=== PATIENT | female | born 1985 | race Caucasian/White ===

== ENCOUNTER 2019-02-24 16:16 | Inpatient (IN) | payer BC ==
[~2019-02-24] VITALS: Ht 160 cm; Wt 56.7 kg
[2019-02-24 16:38] VITALS: BP 110/66
--- NOTE | 2019-02-24 17:14 | NUR ---
8 WKS 33YR F SENT FROM URGENT CARE W/ C/O NVD X 5 DAYS W/ NON RADIATING EPIGASTRIC PAIN 6/10 X 2 DAYS. STATES FEVER A FEW DAYS AGO, ALSO STATES COUGH. LMP APPROX 12/17/18,
[2019-02-24] MEDS ORDERED: ONDANSETRON 4 MG/2 ML VIAL IVP ONE ×2 (17:40→20:40)
[2019-02-24] MEDS ORDERED: NACL 0.9% 1,000 ML IV ONE ×3 (17:40→20:40)
[2019-02-24 18:15] LABS: BASOPHILS % (AUTO) 0.1 % (0.0-2.0); EOSINOPHILS % (AUTO) 0.3 % (0.0-4.0); HEMOGLOBIN 12.9 g/dL (12.0-16.0); LYMPHOCYTES # (AUTO) 1.4 K/uL (2.5-16.5); LYMPHOCYTES % (AUTO) 31.5 % (20.5-51.1); MEAN CORPUSCULAR HEMOGLOBIN 30 pg (27-31); MEAN CORPUSCULAR HGB CONC 34 g/dL (33-37); MEAN CORPUSCULAR VOLUME 88.3 fL (80-94); MONOCYTES # (AUTO) 0.4 K/uL (0.8-1.0); MONOCYTES % (AUTO) 8.7 % (1.7-9.3); NEUTROPHILS # (AUTO) 2.7 K/uL (1.8-7.7); NEUTROPHILS % (AUTO) 59.4 % (42.2-75.2); PLATELET COUNT (AUTO) 207 K/uL (140-450); WHITE BLOOD COUNT (AUTO) 4.5 K/uL (4.8-10.8)
[2019-02-24 18:16] LABS: APPEARANCE,URINE CLEAR (CLEAR); BILIRUBIN,URINE 1+ (NEGATIVE); BLOOD, URINE 1+ (NEGATIVE); COLOR,URINE YELLOW (YELLOW); LEUKOCYTE ESTERASE ,URINE NEGATIVE (NEGATIVE); NITRITE, URINE NEGATIVE (NEGATIVE); UGLUCOSE NEGATIVE (NEGATIVE)
[2019-02-24 18:33] LABS: ANION GAP 16.5 (8-16); CARBON DIOXIDE 21.9 mmol/L (21-32); CREATININE 0.6 mg/dL (0.6-1.3); POTASSIUM 3.4 mmol/L (3.5-5.1)
[2019-02-24 18:33] LABS: URINE AMORPHOUS URATE 1+ /HPF (None Seen); WBC,URINE 0-5 /HPF (0-5)
[2019-02-24 18:39] LABS: ALBUMIN 3.7 g/dL (3.4-5.0); TOTAL BILIRUBIN 0.4 mg/dL (0.0-1.0)
--- NOTE | 2019-02-24 19:04 | NUR ---
REPORT TO CHRISSIE ROWLAND. TRANSFER OF CARE AT THIS TIME.
[2019-02-24] MEDS ORDERED: ACETAMINOPHEN 325 MG TAB PO ONE (19:20)
--- NOTE | 2019-02-24 19:26 | NUR ---
PT C/O 10 HEADACHE PAIN. ERMD MADE AWARE.
--- NOTE | 2019-02-24 20:35 | NUR ---
Dr. Da Silva examining patient.
--- NOTE | 2019-02-24 20:36 | NUR ---
PT VOMITED X 1. ERMD MADE AWARE.
[2019-02-24] MEDS ORDERED: PYRIDOXINE 100 MG/ML VIAL IV ONE (20:40)
[2019-02-24] MEDS ORDERED: DEXT 5% / NACL 0.9% 1,000 ML IV ONE (20:45)
--- NOTE | 2019-02-24 21:20 | NUR ---
PT RESTING IN BED WITH EYES CLOSED. VSS. WILL CONTINUE TO MONITOR.
--- NOTE | 2019-02-24 21:40 | NUR ---
VITMAN B6 UNAVAILABLE IN HOSPITAL. RODRICKD MADE AWARE.
--- NOTE | 2019-02-24 22:57 | NUR ---
DR. JEONG SPEAKING WITH PT AT BEDSIDE
[2019-02-24] MEDS ORDERED: METOCLOPRAMIDE 10 MG/2 ML INJ VIAL IVP ONE (23:00)
--- NOTE | 2019-02-24 23:20 | NUR ---
PT AMBULATED TO RESTROOM
[2019-02-24] MEDS ORDERED: DEXT 5% /NACL 0.9% 1,000 ML IV SCH (23:32)
[2019-02-24] MEDS ORDERED: ACETAMINOPHEN 325 MG TAB PO PRN (23:35)
[2019-02-24] MEDS ORDERED: DOCUSATE SODIUM 100 MG GELCAP PO PRN (23:35)
[2019-02-24] MEDS ORDERED: PYRIDOXINE 50 MG TAB PO PRN (23:35)
--- NOTE | 2019-02-25 00:10 | NUR ---
Patient will be admitted to care of [facility]. Admited to TELE. Will go to room 106A. Belongings list completed. Report to KASHIF BROWN.
--- NOTE | 2019-02-25 00:10 | NUR ---
TRANSFER OF CARE AND REPORT GIVEN TO KASHIF BROWN
[2019-02-25 00:11] LABS: BARBITURATE, URINE NEG. ng/ml (NEG <=200); BENZODIAZEPINE, URINE NEG. ng/mL (NEG <=200); CANNABINOID, URINE NEG. ng/mL (NEG <=50); COCAINE, URINE NEG. ng/mL (NEG <=300); OPIATE, URINE NEG. ng/mL (NEG <=2000); PHENCYCLIDINE SCREEN,URINE NEG. ng/mL (NEG <=25)
[2019-02-25 00:15] VITALS: BP 92/54
--- NOTE | 2019-02-25 00:15 | NUR ---
REPORT RECEIVED FROM ED NURSE AT BEDSIDE. PT IN STABLE CONDITION. AAOX4. INTRODUCED SELF. BOARD UPDATED. NO COMPLAINTS OF PAIN. NO SOB. AFEBRILE. PT IS AMBULATORY. PT 8 WEEKS . IV SITE R AC 20G RUNNING D5NS@100ML/HR PATENT AND INTACT. SKIN WARM, DRY, AND INTACT WITH NO OPEN WOUNDS. BED LOCKED IN LOW POSITION. CALL BRYSON WITHIN REACH. SAFETY PRECAUTION IN PLACE. ALL NEEDS MET AT THIS TIME.
[2019-02-25] MEDS ORDERED: KCL 20 MEQ/WATER INJ PREMIX 200 ML IV SCH (00:30)
[2019-02-25] MEDS ORDERED: TRAM50TA3 PO (00:32)
[2019-02-25] MEDS ORDERED: ACET-5636 PO (00:32)
[2019-02-25 00:38] LABS: PROTHROMBIN TIME 9.7 secs (10.8-13.4)
[2019-02-25 00:50] LABS: MAGNESIUM 1.9 mg/dL (1.8-2.4); PHOSPHORUS 2.7 mg/dL (2.5-4.9)
[2019-02-25] MEDS ORDERED: NALBUPHINE 10 MG/ML AMP IVP PRN (00:50)
[2019-02-25 00:51] LABS: THYROID STIMULATING HORMONE 0.29 uIU/mL (0.34-3.74)
--- NOTE | 2019-02-25 00:53 | NUR ---
POTASSIUM GIVEN IV FOR LEVEL OF 3.4. PT TOLERATING WELL. Addendum: 02/25/19 at 0123 by Rui Cardona RN BAG 1 OF 2 HUNG.
[2019-02-25] MEDS ORDERED: IMI50 PO (01:07)
[2019-02-25] MEDS ORDERED: MORPHINE SULFATE 2 MG/ML SYR IVP PRN (01:15)
[2019-02-25] MEDS ORDERED: INFLUENZA VACCINE QUAD 0.5 ML SYR IMVAC PRN (01:30)
--- NOTE | 2019-02-25 02:30 | NUR ---
PT SLEEPING COMFORTABLY BUT AROUSABLE. NO S/S OF DISTRESS NOTED. RESPIRATIONS EVEN, UNLABORED, AND WNL. WILL CONTINUE TO MONITOR.
[2019-02-25] MEDS ORDERED: traMADol 50 MG TAB PO SCH (03:30)
--- NOTE | 2019-02-25 03:45 | NUR ---
TRAMADOL GIVEN FOR HEADACHE. PT CAME IN FOR NAUSEA AND VOMITING. SHE SAID SHE COULD NOT KEEP THE MEDICATION DOWN. WILL ATTEMPT TO GIVE ANOTHER MEDICATION.
[2019-02-25] MEDS: ONDANSETRON 4 MG/2 ML VIAL IM/IVP PRN (03:54)
--- NOTE | 2019-02-25 03:54 | NUR ---
ZOFRAN GIVEN FOR NAUSEA AND VOMITING. PT TOLERATED WELL.
[2019-02-25 04:00] VITALS: BP 89/53
--- NOTE | 2019-02-25 04:34 | NUR ---
MD ORDERED 1MG MORPHINE THROUGH IV BUT PATIENT STATES THAT SHE CANNOT TAKE THE MEDICATION. MEDICATION WAS DRAWN INTO SYRINGE. MEDICATED WASTED INTO THE PHARMACEUTICAL WASTE BIN.
[2019-02-25] MEDS ORDERED: HYDROmorphone 1 MG/ML AMP ONE ×5 (09:00→21:25)
[2019-02-25] MEDS ORDERED: MAG SULF 2000 MG/WATER PREMIX 50 ML IV ONE (16:50)
[2019-02-25] MEDS ORDERED: MELATONIN 3 MG TAB ONE (21:45)
[2019-02-26] MEDS ORDERED: HYDROmorphone 1 MG/ML AMP ONE ×7 (00:25→22:08)
--- NOTE | 2019-02-26 07:40 | NUR ---
RECEIVED REPORT FROM UNDERGROUND ELECTRICIAN NURSE FOR CONTINUITY OF CARE. PATIENT LYING DOWN IN BED, NO DISTRESS NOTED. PAIN WITHIN TOLERABLE AT THIS TIME. AAOX4, CALM, COOPERATIVE, SKIN COLOR APPROPRIATE TO ETHNICITY, WARM TO TOUCH. SKIN INTACT. IV SITE INTACT, PATENT, AND INFUSING IVF PER MD ORDERS. REVIEWED PLAN OF CARE WITH PATIENT. PATIENT VERBALIZED UNDERSTANDING. SAFETY MEASURES IN PLACE, CALL LIGHT WITHIN REACH. WILL CONTINUE TO MONITOR.
--- NOTE | 2019-02-26 08:16 | NUR ---
0816 DILAUDID GIVEN AT THIS TIME DUE TO COMPLAINS OF ABD PAIN. 0832 ZOFRAN GIVEN AT THIS TIME DUE TO NAUSEA. WILL CONTINUE TO MONITOR.
[2019-02-26] MEDS: ONDANSETRON 4 MG/2 ML VIAL IM/IVP PRN (08:32)
[2019-02-26] MEDS ORDERED: METOCLOPRAMIDE 10 MG/2 ML INJ VIAL ONE (13:40)
[2019-02-26 15:13] LABS: T4 (THYROXINE) 8.3 ug/dL (4.5-12.0)
[2019-02-26] MEDS ORDERED: ONDANSETRON 4 MG/2 ML VIAL ONE (18:50)
[2019-02-26 20:00] VITALS: BP 98/61
[2019-02-26 20:11] LABS: ANION GAP 16.3 (8-16); CARBON DIOXIDE 18.8 mmol/L (21-32); CHOL/HDL RATIO 4.5 (1-4.5); CREATININE 0.5 mg/dL (0.6-1.3); MAGNESIUM 1.7 mg/dL (1.8-2.4); PHOSPHORUS 1.9 mg/dL (2.5-4.9); POTASSIUM 3.1 mmol/L (3.5-5.1)
[2019-02-26] MEDS ORDERED: hydrOXYzine PAMOATE 25 MG CAP ONE (22:32)
[2019-02-27] VITALS: BP 90/45
[2019-02-27] MEDS ORDERED: HYDROmorphone 1 MG/ML AMP ONE ×2 (02:03→06:26)
[2019-02-27] MEDS ORDERED: METOCLOPRAMIDE 10 MG/2 ML INJ VIAL ONE (02:33)
[2019-02-27 04:00] VITALS: BP 92/50
[2019-02-27] MEDS: NACL 0.9% 1,000 ML IV SCH ×3 (07:35→23:39)
[2019-02-27 08:00] VITALS: BP 93/57
[2019-02-27 08:04] LABS: BASOPHILS % (AUTO) 0.1 % (0.0-2.0); EOSINOPHILS % (AUTO) 0.4 % (0.0-4.0); HEMATOCRIT 30.7 % (36-48); HEMOGLOBIN 10.8 g/dL (12.0-16.0); LYMPHOCYTES # (AUTO) 1.9 K/uL (2.5-16.5); LYMPHOCYTES % (AUTO) 27.8 % (20.5-51.1); MEAN CORPUSCULAR HEMOGLOBIN 31 pg (27-31); MEAN CORPUSCULAR HGB CONC 35 g/dL (33-37); MEAN CORPUSCULAR VOLUME 88.1 fL (80-94); MONOCYTES # (AUTO) 0.5 K/uL (0.8-1.0); NEUTROPHILS # (AUTO) 4.4 K/uL (1.8-7.7); NEUTROPHILS % (AUTO) 64.7 % (42.2-75.2); PLATELET COUNT (AUTO) 248 K/uL (140-450); RED BLOOD CELL COUNT(AUTO) 3.49 MIL/uL (4.20-5.40); RED CELL DISTRIBUTION WIDTH 12.9 % (11.6-13.7); WHITE BLOOD COUNT (AUTO) 6.8 K/uL (4.8-10.8)
[2019-02-27] MEDS: NICOTINE TRANSD SYS 14 MG/24 HR PATCH TD SCH (09:00)
--- NOTE | 2019-02-27 09:00 | NUR ---
PATIENT SLEEPING AT THE BEDSIDE. STABLE. WILL CONTINUE TO MONITOR.
[2019-02-27 09:06] LABS: ANION GAP 13.1 (8-16); CARBON DIOXIDE 21.7 mmol/L (21-32); CREATININE 0.5 mg/dL (0.6-1.3); POTASSIUM 2.8 mmol/L (3.5-5.1); TOTAL BILIRUBIN 0.4 mg/dL (0.0-1.0)
[2019-02-27 09:07] LABS: ALBUMIN 2.7 g/dL (3.4-5.0); MAGNESIUM 1.6 mg/dL (1.8-2.4); PHOSPHORUS 2.4 mg/dL (2.5-4.9)
[2019-02-27] MEDS ORDERED: hydrOXYzine PAMOATE 25 MG CAP PO PRN (09:25)
[2019-02-27] MEDS ORDERED: HYDROmorphone 1 MG/ML AMP IVP PRN (09:30)
[2019-02-27] MEDS ORDERED: PROMETHAZINE 25 MG/ML VIAL IM PRN (09:30)
[2019-02-27] MEDS ORDERED: ONDANSETRON 4 MG/2 ML VIAL IVP PRN (09:30)
[2019-02-27] MEDS ORDERED: METOCLOPRAMIDE 10 MG/2 ML INJ VIAL IVP PRN (09:30)
[2019-02-27] MEDS ORDERED: POTASSIUM CHLORIDE 10 MEQ TABER PO SCH (10:00)
[2019-02-27] MEDS ORDERED: POTASSIUM CHLORIDE 40 MEQ, LIDOCAINE MPF 1% 25 MG in NACL 0.9% 250 ML IV SCH (10:00)
[2019-02-27] MEDS ORDERED: MAGNESIUM OXIDE 400 MG TAB PO SCH (10:00)
[2019-02-27] MEDS ORDERED: SODIUM PHOS / POTASSIUM PHOS 1 PKT PDR PO SCH (10:00)
[2019-02-27 10:37] LABS: BASOPHILS % (AUTO) 0.1 % (0.0-2.0); EOSINOPHILS % (AUTO) 0.1 % (0.0-4.0); HEMATOCRIT 33.8 % (36-48); HEMOGLOBIN 11.6 g/dL (12.0-16.0); LYMPHOCYTES # (AUTO) 1.1 K/uL (2.5-16.5); LYMPHOCYTES % (AUTO) 27.9 % (20.5-51.1); MEAN CORPUSCULAR HEMOGLOBIN 31 pg (27-31); MEAN CORPUSCULAR HGB CONC 34 g/dL (33-37); MEAN CORPUSCULAR VOLUME 88.7 fL (80-94); MONOCYTES # (AUTO) 0.3 K/uL (0.8-1.0); MONOCYTES % (AUTO) 8.3 % (1.7-9.3); NEUTROPHILS # (AUTO) 2.4 K/uL (1.8-7.7); NEUTROPHILS % (AUTO) 63.6 % (42.2-75.2); PLATELET COUNT (AUTO) 206 K/uL (140-450); RED BLOOD CELL COUNT(AUTO) 3.81 MIL/uL (4.20-5.40); WHITE BLOOD COUNT (AUTO) 3.8 K/uL (4.8-10.8)
--- NOTE | 2019-02-27 13:24 | NUR ---
PAIN MEDICATION GIVEN TO PATIENT R/T TO ADB PAIN. WILL CONTINUE TO MONITOR.
[2019-02-27] MEDS ORDERED: FAMOTIDINE 20 MG/2 ML VIAL IV SCH (14:17)
[2019-02-27] MEDS ORDERED: CALCIUM CARBONATE 500 MG TAB.CHEW PO SCH (14:18)
[2019-02-27] MEDS ORDERED: SHARK OIL/PHENYLEPHRINE 60 GM TUBE TP PRN (14:35)
[2019-02-27 16:00] VITALS: BP 101/62
[2019-02-27] MEDS: PROMETHAZINE 25 MG/ML VIAL IM PRN (17:17)
--- NOTE | 2019-02-27 17:17 | NUR ---
PATIENT C/O ABD PAIN, WILL GIVE PAIN MEDS, PER DR ISAIAH VELASQUEZ TO INCREASE TO 0.5 MG DILAUDID. PATIENT ALSO REQUESTING PHENERGAN, REQUESTING TO HAVE THAT INSTEAD OF ZOFRAN. MEDICATIONS WERE GIVEN AT THIS TIME. VITAL SIGNS ARE STABLE. WILL CONTINUE TO MONITOR.
[2019-02-27] MEDS: HYDROmorphone 1 MG/ML AMP IVP PRN ×2 (17:18→22:25)
--- NOTE | 2019-02-27 18:30 | NUR ---
PATIENT LAYING PEACEFULLY IN BED. ON PHONE. PATIENT IS TOLERATING BRIT DIET BETTER. WILL CONTINUE TO MONITOR.
[2019-02-27 18:48] LABS: ALBUMIN 3.4 g/dL (3.4-5.0); ANION GAP 13.4 (8-16); CARBON DIOXIDE 22.2 mmol/L (21-32); CREATININE 0.5 mg/dL (0.6-1.3); POTASSIUM 3.6 mmol/L (3.5-5.1); TOTAL BILIRUBIN 0.5 mg/dL (0.0-1.0)
--- NOTE | 2019-02-27 19:10 | NUR ---
GAVE REPORT TO CARROTING MACHINE OFFBEARER NURSE FOR CONTINUITY OF CARE. PATIENT IN STABLE CONDITION.
--- NOTE | 2019-02-27 19:15 | NUR ---
RECEIVED FROM AM RN IN BED AWAKE AND ALERT. ORIENTED X 4. ROM X 4. ABLE TO VERBALIZE WELL IN SWEDISH WITH US. NO SOB. NO COMPLAINTS OF ANY PAIN AT THIS TIME. CARE PLANS FOR THE NIGHT DISCUSSED WITH HER. CALL LIGHT WITH IN REACH AT BEDSIDE.
[2019-02-27 20:00] VITALS: BP 80/47
[2019-02-27] MEDS ORDERED: hydrOXYzine 50 MG/ML VIAL IM SCH (21:00)
[2019-02-27] MEDS: CALCIUM CARBONATE 500 MG TAB.CHEW PO SCH (21:24)
[2019-02-27] MEDS: FAMOTIDINE 20 MG/2 ML VIAL IV SCH (21:24)
--- NOTE | 2019-02-27 22:08 | NUR ---
ENDORSED TO ANOTHER RN FOR CONTINUITY OF CARE INSTRUCTED BY CHARGE NURSE. AWAKE AND ALERT. ABLE TO VERBALIZE NEEDS WELL.
--- NOTE | 2019-02-27 22:09 | NUR ---
RECEIVED PT IN STABLE CONDITION FROM KASHIF LEON FOR CONTINUITY OF CARE. HAS IVF INFUSING ON LT AC. AMBULATORY. NO N/V NOTED. BUT SAID SHE IS HAVING PAIN. EXPLAINED TO PT ABOUT LOW BP. WILL RECHECK LATER.
[2019-02-27] MEDS: hydrOXYzine PAMOATE 25 MG CAP PO SCH (22:10)
[2019-02-27 22:18] VITALS: BP 97/54
--- NOTE | 2019-02-27 22:55 | NUR ---
DR. FISHMAN CAME AND SEEN PT. MADE AWARE [facility] HE SAID HE WILL CHANGE TO [facility].
--- NOTE | 2019-02-28 00:30 | NUR ---
ENDORSED PT IN STABLE CONDITION TO KASHIF MIDDLETONFUR PLUCKER FOR CONTINUITY OF CARE.
[2019-02-28 00:38] VITALS: BP 92/52
--- NOTE | 2019-02-28 00:40 | NUR ---
RECEIVED REPORT OF PT IN STABLE CONDITION.IVF IS INFUSING WELL.CALL LIGHT IN REACH.NO C/O PAIN NOW.
[2019-02-28] MEDS: PROMETHAZINE 25 MG/ML VIAL IM PRN (02:00)
[2019-02-28] MEDS: HYDROmorphone 1 MG/ML AMP IVP PRN ×2 (02:03→08:16)
[2019-02-28] MEDS: NACL 0.9% 1,000 ML IV SCH ×5 (03:40→23:19)
--- NOTE | 2019-02-28 04:00 | NUR ---
pt is sleeping.no s/s of any distress noted.
--- NOTE | 2019-02-28 07:25 | NUR ---
REPORT GIVEN TO AM RN .PT'S CONDITION IS STABLE.IV SITE HAD LEAKAGE STOPPED THAT AND ENDORSE TO AM SHIFT TO RESTART NEW IV.
--- NOTE | 2019-02-28 07:28 | NUR ---
[facility] report [facility]. Pt is in bed in stable condition. Call light in reach.
[2019-02-28 07:58] LABS: BASOPHILS % (AUTO) 0.1 % (0.0-2.0); EOSINOPHILS # (AUTO) 0.1 K/uL (0-0.4); EOSINOPHILS % (AUTO) 0.8 % (0.0-4.0); HEMATOCRIT 29.9 % (36-48); HEMOGLOBIN 10.3 g/dL (12.0-16.0); LYMPHOCYTES % (AUTO) 29.7 % (20.5-51.1); MEAN CORPUSCULAR HEMOGLOBIN 30 pg (27-31); MEAN CORPUSCULAR HGB CONC 34 g/dL (33-37); MEAN CORPUSCULAR VOLUME 88.8 fL (80-94); MONOCYTES # (AUTO) 0.5 K/uL (0.8-1.0); MONOCYTES % (AUTO) 7.9 % (1.7-9.3); NEUTROPHILS # (AUTO) 4.1 K/uL (1.8-7.7); NEUTROPHILS % (AUTO) 61.5 % (42.2-75.2); PLATELET COUNT (AUTO) 246 K/uL (140-450); RED BLOOD CELL COUNT(AUTO) 3.37 MIL/uL (4.20-5.40); RED CELL DISTRIBUTION WIDTH 13.1 % (11.6-13.7); WHITE BLOOD COUNT (AUTO) 6.6 K/uL (4.8-10.8)
[2019-02-28 08:00] VITALS: BP 99/69
[2019-02-28] MEDS: FAMOTIDINE 20 MG/2 ML VIAL IV SCH ×2 (08:14→20:58)
[2019-02-28] MEDS: CALCIUM CARBONATE 500 MG TAB.CHEW PO SCH ×2 (08:15→21:00)
[2019-02-28 08:34] LABS: ANION GAP 14.8 (8-16); CARBON DIOXIDE 20.4 mmol/L (21-32); CREATININE 0.5 mg/dL (0.6-1.3); POTASSIUM 3.2 mmol/L (3.5-5.1)
[2019-02-28 08:38] LABS: MAGNESIUM 1.5 mg/dL (1.8-2.4); PHOSPHORUS 2.5 mg/dL (2.5-4.9)
[2019-02-28] MEDS: NICOTINE TRANSD SYS 14 MG/24 HR PATCH TD SCH (09:00)
--- NOTE | 2019-02-28 09:00 | NUR ---
Pt refused nicotine patch. Pt says that she is not feeling any symptoms.
[2019-02-28] MEDS ORDERED: POTASSIUM CHLORIDE 10 MEQ TABER PO SCH (10:00)
[2019-02-28] MEDS ORDERED: MAG SULF 2000 MG/WATER PREMIX 50 ML IV SCH (10:00)
--- NOTE | 2019-02-28 10:00 | NUR ---
Pt is in stable condition. Family be bedside. Call light in reach.
[2019-02-28] MEDS: HYDROmorphone 1 MG/ML AMP IVP SCH ×5 (11:04→22:30)
[2019-02-28] MEDS: ONDANSETRON 4 MG/2 ML VIAL IVP SCH ×2 (12:44→18:00)
[2019-02-28] MEDS: METOCLOPRAMIDE 10 MG/2 ML INJ VIAL IVP SCH ×2 (12:44→20:58)
--- NOTE | 2019-02-28 13:00 | NUR ---
Pt is in stable condition. Family be bedside. Call light in reach.
--- NOTE | 2019-02-28 15:00 | NUR ---
Pt is in stable condition. Family be bedside. Call light in reach.
[2019-02-28 16:00] VITALS: BP 99/59
--- NOTE | 2019-02-28 17:00 | NUR ---
Pt is in stable condition. Family be bedside. Call light in reach.
[2019-02-28] MEDS: PROMETHAZINE 25 MG/ML VIAL IM SCH ×2 (17:02→21:08)
[2019-02-28 17:19] LABS: ANION GAP 17.7 (8-16); CARBON DIOXIDE 21.4 mmol/L (21-32); CREATININE 0.6 mg/dL (0.6-1.3); POTASSIUM 3.1 mmol/L (3.5-5.1); TOTAL BILIRUBIN 0.5 mg/dL (0.0-1.0)
[2019-02-28 17:20] LABS: ALBUMIN 2.9 g/dL (3.4-5.0); MAGNESIUM 1.9 mg/dL (1.8-2.4); PHOSPHORUS 2.4 mg/dL (2.5-4.9)
--- NOTE | 2019-02-28 19:30 | NUR ---
Shift report given to night nurse nurse. Pt is in stable condition. Call light in reach.
--- NOTE | 2019-02-28 19:31 | NUR ---
RECD. RESTING IN BED, AWAKE, A/OX4. RESPIRATION EVEN AND UNLABORED. IV OF NS AT 150 ML/HR INFUSING, LEFT AC G20. NO NAUSEA.VOMITING NOTED. CLAIMED THAT SHE IS ALWAYS IN CONSTANT PAIN, WILL GIVE PAIN MEDICATION WHEN IT IS DUE. PLAN OF CARE FOR THE SHIFT DISCUSSED. VERBALIZED UNDERSTANDING. DENIES PAIN 0/10.
--- NOTE | 2019-02-28 20:00 | NUR ---
Patient's Plan of Care was discussed and reviewed with WAREHOUSE PICKER: LISA SERNA LVN.
--- NOTE | 2019-02-28 20:58 | NUR ---
MEDICATED WITH REGLAN IVP BY KASHIF BROWN PER MD ORDER.
[2019-02-28] MEDS: hydrOXYzine PAMOATE 25 MG CAP PO SCH (21:00)
[2019-02-28] MEDS ORDERED: ZOLPIDEM 5 MG TAB PO SCH (21:00)
--- NOTE | 2019-02-28 21:08 | NUR ---
STATED ALWAYS FEELING TO BE NAUSEATED, MEDICATED WITH PHENERGAN ORDERED.
[2019-03-01] VITALS: BP 93/60
--- NOTE | 2019-03-01 | NUR ---
SLEEPING COMFORTABLY IN BED.
[2019-03-01] MEDS: HYDROmorphone 1 MG/ML AMP IVP SCH ×4 (00:02→08:30)
[2019-03-01] MEDS: ONDANSETRON 4 MG/2 ML VIAL IVP SCH ×2 (00:04→05:10)
[2019-03-01 02:30] VITALS: BP 94/55
[2019-03-01] MEDS: PROMETHAZINE 25 MG/ML VIAL IM SCH ×3 (02:39→08:33)
[2019-03-01] MEDS: NACL 0.9% 1,000 ML IV SCH ×2 (03:46→11:05)
--- NOTE | 2019-03-01 04:00 | NUR ---
NO COMPLAINT OF PAIN, TOLERATED ALL MEDICATIONS GIVEN.
[2019-03-01] MEDS: METOCLOPRAMIDE 10 MG/2 ML INJ VIAL IVP SCH (05:09)
[2019-03-01 07:17] LABS: BASOPHILS % (AUTO) 0.1 % (0.0-2.0); EOSINOPHILS # (AUTO) 0.1 K/uL (0-0.4); EOSINOPHILS % (AUTO) 1.4 % (0.0-4.0); HEMATOCRIT 29.6 % (36-48); HEMOGLOBIN 10.1 g/dL (12.0-16.0); LYMPHOCYTES # (AUTO) 2.1 K/uL (2.5-16.5); MEAN CORPUSCULAR HEMOGLOBIN 30 pg (27-31); MEAN CORPUSCULAR HGB CONC 34 g/dL (33-37); MEAN CORPUSCULAR VOLUME 89.2 fL (80-94); MONOCYTES # (AUTO) 0.6 K/uL (0.8-1.0); MONOCYTES % (AUTO) 7.9 % (1.7-9.3); NEUTROPHILS # (AUTO) 4.7 K/uL (1.8-7.7); NEUTROPHILS % (AUTO) 62.6 % (42.2-75.2); PLATELET COUNT (AUTO) 271 K/uL (140-450); RED BLOOD CELL COUNT(AUTO) 3.32 MIL/uL (4.20-5.40); RED CELL DISTRIBUTION WIDTH 13.1 % (11.6-13.7); WHITE BLOOD COUNT (AUTO) 7.5 K/uL (4.8-10.8)
[2019-03-01 07:19] LABS: ANION GAP 14.6 (8-16); CARBON DIOXIDE 20.9 mmol/L (21-32); CREATININE 0.5 mg/dL (0.6-1.3); POTASSIUM 3.5 mmol/L (3.5-5.1)
--- NOTE | 2019-03-01 07:20 | NUR ---
CONDIITON REMAIN STABLE. ENDORSED TO AM SHIFT NURSE FOR CONTINUITY OF CARE.
--- NOTE | 2019-03-01 07:22 | NUR ---
RECEIVED BEDSIDE REPORT FROM JEWELRY ENAMELER NURSE FOR CONTINUITY OF CARE. PATIENT IS ASLEEP ON BED. AROUSABLE TO VOICE. FLACC 0. RESPIRATION EVEN AND UNLABORED ON RA. NO SIGNS OF DISTRESS NOTED. IV CLEAN AND INTACT, INFUSING PER MD ORDER. SKIN CLEAN AND DRY. SAFETY MEASURES IN PLACE. BED IN LOW POSITION AND CALL LIGHT WITHIN REACH.
[2019-03-01 07:28] LABS: MAGNESIUM 1.6 mg/dL (1.8-2.4); PHOSPHORUS 2.9 mg/dL (2.5-4.9)
[2019-03-01 07:32] LABS: ALBUMIN 2.7 g/dL (3.4-5.0); BILIRUBIN,DIRECT 0.1 mg/dL (0.0-0.3); TOTAL BILIRUBIN 0.4 mg/dL (0.0-1.0)
[2019-03-01 08:00] VITALS: BP 90/53
[2019-03-01] MEDS: CALCIUM CARBONATE 500 MG TAB.CHEW PO SCH (08:30)
[2019-03-01] MEDS: FAMOTIDINE 20 MG/2 ML VIAL IV SCH (08:31)
[2019-03-01] MEDS: NICOTINE TRANSD SYS 14 MG/24 HR PATCH TD SCH (08:34)
--- NOTE | 2019-03-01 08:34 | NUR ---
ADMINISTERED SCHEDULED MEDS MD ORDER, MEDS ED PROVIDED TO PATIENT AND PATIENT VERBALIZED UNDERSTANDING. PATIENT TOLERATED MEDS WELL. PATIENT IS AAOX4. INFORMED PATIENT THAT SHE WILL BE RELEASE FROM THE HOSPITAL TODAY, PATIENT WAS AWARE AND STATED "MY FAMILY WILL PICK ME UP AROUND NOON TIME, BUT I DON'T WANT THEM TO KNOW ANYTHING ABOUT MY AND REQUEST FAMILY NOT TO KNOW ABOUT HER MEDICAL INFOR." EXPLAINED TO PATIENT THAT DURING DISCHARGE I WILL ASK FAMILY/VISITOR TO STEP OUT AND NOT DISCLOSE ANY OF HER INFOR, PATIENT SAID OK. PATIENT IS RESTING ON BED AT THIS TIME. NO SIGNS OF DISTRESS NOTED. SAFETY MEASURES IN PLACE. BED IN LOW POSITION AND CALL LIGHT WITHIN REACH. INSTRUCTED PATIENT TO USE THE CALL LIGHT FOR ANY ASSISTANCE AND PATIENT SAID OK.
[2019-03-01] MEDS ORDERED: BISACODYL 5 MG TABEC PO SCH (09:30)
[2019-03-01] MEDS ORDERED: DOCUSATE SODIUM 100 MG GELCAP PO SCH (09:30)
[2019-03-01] MEDS ORDERED: traMADol 50 MG TAB PO PRN (09:35)
--- NOTE | 2019-03-01 09:40 | NUR ---
PT AWAKE AND TALKING ON HER PHONE AT THIS TIME. NO SIGNS OF DISTRESS NOTED. SAFETY MEASURES IN PLACE.
[2019-03-01] MEDS ORDERED: HYDR-4255 PO (09:44)
[2019-03-01] MEDS ORDERED: PROM25TA27 PO (09:44)
[2019-03-01] MEDS ORDERED: FAMO-90 PO (09:44)
[2019-03-01] MEDS ORDERED: DOCU-299 PO (09:44)
[2019-03-01] MEDS ORDERED: PYRI50TA PO (09:44)
[2019-03-01] MEDS ORDERED: DOXY25TA30 PO (09:44)
[2019-03-01] MEDS ORDERED: METO10TA98 PO (09:44)
[2019-03-01] MEDS ORDERED: ONDA8TAB PO (09:44)
[2019-03-01] MEDS ORDERED: MAGNESIUM OXIDE 400 MG TAB PO SCH (10:00)
[2019-03-01] MEDS ORDERED: FAMOTIDINE 20 MG TAB PO SCH ×2 (10:00→21:00)
--- NOTE | 2019-03-01 11:05 | NUR ---
ADMINISTERED SCHEDULED MEDS PER MD ORDER, MEDS ED PROVIDED TO PATIENT AND PT VERBALIZED OK. ADMINISTERED FLU VACCINE, VACCINATION ED PROVIDED TO PATIENT AND PATIENT VERBALIZED UNDERSTANDING. PATIENT IS AWAKE AND RESTING ON BED AT THIS TIME. AWAITING FOR FAMILY TO ARRIVE FOR DC. NO SIGNS OF DISTRESS NOTED. SAFETY MEASURES IN PLACE.
[2019-03-01] MEDS ORDERED: METOCLOPRAMIDE 10 MG TAB PO PRN (12:00)
[2019-03-01] MEDS ORDERED: ONDANSETRON 4 MG ODT SL SCH (12:00)
[2019-03-01] MEDS ORDERED: PROMETHAZINE 25 MG TAB PO PRN (12:00)
--- NOTE | 2019-03-01 12:15 | NUR ---
PATIENT IS AWAKE AND TALKING ON HER PHONE. NO SIGNS OF DISTRESS NOTED. SAFETY MEASURES IN PLACE. BED IN LOW POSITION AND CALL LIGHT WITHIN REACH. AWAITING FOR FAMILY TO ARRIVE FOR DC.
--- NOTE | 2019-03-01 12:44 | NUR ---
DISCHARGE EDUCATION PROVIDED TO PATIENT AT BEDSIDE. EDUCATED PT ON MD FOLLOW UP, MEDICATIONS REGIMEN, SIDE EFFECTS, DIET REGIMEN AND SEEK MEDICAL HELP IN CASE OF MEDICAL EMERGENCY. ANSWERED ALL PATIENT'S QUESTIONS AND PATIENT VERBALIZED UNDERSTANDING. DC IV AND CANNULA INTACT, NO BLEEDING AT IV SITE. REMOVED ALL ARM BANDS. PATIENT TOOK ALL HER BELONGING AND CHECK ALL THE CABINETS. PATIENT WAS AWARE THAT HER PRESCRIPTION WAS SENT TO PREFERRED PHARMACY. FLU VACCINE ADMINISTERED AND ED PROVIDED. ESCORTED PT TO FRONT LOBBY WITH WHEELCHAIR. PATIENT IS GOING TO [place] WITH MOTHER ELISABET. PATIENT IS IN STABLE CONDITION.
[2019-03-01] MEDS ORDERED: NON-FORMULARY ITEM (Oxycodone HCl/Acetaminophen (Percocet 10-325 mg Tablet) 1 TAB) PO SCH (13:00)
--- NOTE | 2019-03-01 14:30 | NUR ---
Called [employer] [facility] at [phone]. CM assigned is Linda Jaquez The rep. did not give me her Ph .Linda did not burr picker. I left a message. Requested remote team to fax over the clinicals at [phone].
[2019-03-02] MEDS ORDERED: DOCUSATE SODIUM 100 MG GELCAP PO SCH (09:00)
[2019-03-02 20:17] LABS: RED BLOOD CELL COUNT(AUTO) 3.66 MIL/uL (4.20-5.40); WHITE BLOOD COUNT (AUTO) 6.1 K/uL (4.8-10.8)
[2019-03-02 20:18] LABS: HEMATOCRIT 32.7 % (36-48); MEAN CORPUSCULAR HEMOGLOBIN 30 pg (27-31); MEAN CORPUSCULAR HGB CONC 34 g/dL (33-37); MEAN CORPUSCULAR VOLUME 89.3 fL (80-94); PLATELET COUNT (AUTO) 234 K/uL (140-450); RED CELL DISTRIBUTION WIDTH 12.9 % (11.6-13.7)
[2019-03-02 20:19] LABS: BASOPHILS % (AUTO) 0.1 % (0.0-2.0); EOSINOPHILS % (AUTO) 0.4 % (0.0-4.0); LYMPHOCYTES # (AUTO) 1.5 K/uL (2.5-16.5); LYMPHOCYTES % (AUTO) 24.6 % (20.5-51.1); MONOCYTES # (AUTO) 0.5 K/uL (0.8-1.0); MONOCYTES % (AUTO) 7.7 % (1.7-9.3); NEUTROPHILS # (AUTO) 4.1 K/uL (1.8-7.7); NEUTROPHILS % (AUTO) 67.2 % (42.2-75.2)
== END 2019-03-01 12:45 | disposition home or self-care (01) | DRG 832 ==
LOC: MED 16:16 → MTU 23:45
PROVIDERS: ADMIT Family Medicine; ATTEND Family Medicine
DX: O21.1 Hyperemesis gravidarum with metabolic disturbance (principal); O98.511 Other viral diseases complicating pregnancy, first trimester; O99.354 Diseases of the nervous system complicating childbirth; G43.909 Migraine, unspecified, not intractable, without status migrainosus; E86.0 Dehydration; B34.9 Viral infection, unspecified; O99.281 Endocrine, nutritional and metabolic diseases complicating pregnancy, first trimester; F17.200 Nicotine dependence, unspecified, uncomplicated; R10.2 Pelvic and perineal pain; G47.00 Insomnia, unspecified; G89.29 Other chronic pain; O99.331 Smoking (tobacco) complicating pregnancy, first trimester; O34.219 Maternal care for unspecified type scar from previous cesarean delivery; Z3A.01 Less than 8 weeks gestation of pregnancy; Z79.891 Long term (current) use of opiate analgesic
CPT/HCPCS: 36415; 76700; 76705; 76801; 80048; 80053; 80076; 80305; 81001; 82150; 82607; 82728; 82746; 83036; 83540; 83690; 83735; 83880; 84100; 84436; 84443; 84484; 84702; 85025; 85045; 85610; 85730; 86900; 86901; 87081; 87804; 96361; 96374; 96375; 96376; 99285; J1170; J2001; J2270; J2405; J2550; J2765; J3415; J3475; J3480; J3490; J7030; J7042; Q0092; Q0177

== ENCOUNTER 2019-04-01 17:28 | Emergency (ER) | payer BC ==
[~2019-04-01] VITALS: Ht 160 cm; Wt 57.6 kg
[~2019-04-01 17:28] MED LIST: ACET-5636 PO; DOCU-299 PO; DOXY25TA30 PO; FAMO-90 PO; HYDR-4255 PO; IMI50 PO; METO10TA98 PO; ONDA8TAB PO; PROM25TA27 PO; PYRI50TA PO; TRAM50TA3 PO
[2019-04-01 17:40] VITALS: BP 100/71
--- NOTE | 2019-04-01 19:23 | NUR ---
PT AMBULATED TO BED 4
[2019-04-01] MEDS ORDERED: NACL 0.9% 1,000 ML IV ONE ×2 (19:45→21:15)
[2019-04-01] MEDS ORDERED: KETOROLAC 30 MG/ML VIAL IVP ONE (19:45)
[2019-04-01] MEDS ORDERED: ONDANSETRON 4 MG/2 ML VIAL IVP ONE (19:45)
--- NOTE | 2019-04-01 19:52 | NUR ---
PT ASSESSMENT COMPLETE. PT ATTACHED TO MONITORING SYSTEM. PT SEATED UPRIGHT IN BED WITH BEDRAIL X1UP. WILL CONTINUE TO MONITOR.
[2019-04-01 20:52] LABS: APPEARANCE,URINE CLEAR (CLEAR); BILIRUBIN,URINE NEGATIVE (NEGATIVE); BLOOD, URINE NEGATIVE (NEGATIVE); COLOR,URINE YELLOW (YELLOW); LEUKOCYTE ESTERASE ,URINE NEGATIVE (NEGATIVE); NITRITE, URINE NEGATIVE (NEGATIVE); UGLUCOSE NEGATIVE (NEGATIVE)
--- NOTE | 2019-04-01 20:57 | NUR ---
PT AMBULATED TO RESTROOM WITH NO ASSISTANCE.
--- NOTE | 2019-04-01 21:00 | NUR ---
PT REPORTS NO CHANE IN PAIN LEVEL AND FEELINGS OF NAUSEA. ERMD NOTIFIED.
--- NOTE | 2019-04-01 21:30 | NUR ---
NEW ORDER FOR 1L NS BOLUS, CARRIED OUT.
--- NOTE | 2019-04-01 23:15 | NUR ---
PT SEEN IN BED LAYING FLAT. BEDRAIL X1 UP. PT CONIDTION STABLE. WILL CONTINUE TO MONITOR.
--- NOTE | 2019-04-02 00:20 | NUR ---
Patient discharged with v/s stable. Written and verbal after care instructions given and explained. Patient alert, oriented and verbalized understanding of instructions. Ambulatory with steady gait. All questions addressed prior to discharge. ID band removed. Patient advised to follow up with PMD. Rx of DICLEGIS given. Patient educated on indication of medication including possible reaction and side effects. Opportunity to ask questions provided and answered.
[2019-04-02 00:23] VITALS: BP 108/79
== END 2019-04-02 00:20 | disposition home or self-care (01) ==
LOC: MED 17:28
DX: O21.0 Mild hyperemesis gravidarum (principal); G89.29 Other chronic pain; Z3A.11 11 weeks gestation of pregnancy; Z79.899 Other long term (current) drug therapy
CPT/HCPCS: 81003; 81025; 96361; 96374; 96375; 99283; J1885; J2405; J7030; 99284

== ENCOUNTER 2019-06-04 20:33 | Inpatient (IN) | payer BC ==
[~2019-06-04] VITALS: Ht 160 cm; Wt 59.0 kg
[~2019-06-04 20:33] MED LIST changes: -DOCU-299 PO; -FAMO-90 PO; -HYDR-4255 PO
[2019-06-04 21:22] VITALS: BP 102/62
[2019-06-04] MEDS ORDERED: ONDANSETRON 4 MG/2 ML VIAL IVP PRN (21:35)
[2019-06-04] MEDS ORDERED: cefTRIAXone 1,000 MG VIAL ONE (22:06)
[2019-06-04 22:15] LABS: BASOPHILS % (AUTO) 0.3 % (0.0-2.0); EOSINOPHILS # (AUTO) 0.4 K/uL (0-0.4); EOSINOPHILS % (AUTO) 3.4 % (0.0-4.0); HEMATOCRIT 33.6 % (36-48); HEMOGLOBIN 11.4 g/dL (12.0-16.0); LYMPHOCYTES # (AUTO) 2.4 K/uL (2.5-16.5); LYMPHOCYTES % (AUTO) 21.3 % (20.5-51.1); MEAN CORPUSCULAR HEMOGLOBIN 31 pg (27-31); MEAN CORPUSCULAR HGB CONC 34 g/dL (33-37); MONOCYTES # (AUTO) 0.7 K/uL (0.8-1.0); MONOCYTES % (AUTO) 6.2 % (1.7-9.3); NEUTROPHILS # (AUTO) 7.7 K/uL (1.8-7.7); NEUTROPHILS % (AUTO) 68.8 % (42.2-75.2); PLATELET COUNT (AUTO) 256 K/uL (140-450); RED BLOOD CELL COUNT(AUTO) 3.69 MIL/uL (4.20-5.40); RED CELL DISTRIBUTION WIDTH 12.4 % (11.6-13.7); WHITE BLOOD COUNT (AUTO) 11.2 K/uL (4.8-10.8)
[2019-06-04 22:18] LABS: BILIRUBIN,URINE NEGATIVE (NEGATIVE); BLOOD, URINE TRACE-I (NEGATIVE); COLOR,URINE YELLOW (YELLOW); LEUKOCYTE ESTERASE ,URINE 1+ (NEGATIVE); NITRITE, URINE POSITIVE (NEGATIVE); UGLUCOSE NEGATIVE (NEGATIVE)
[2019-06-04 22:28] LABS: ANION GAP 9.4 (8-16); CARBON DIOXIDE 30.2 mmol/L (21-32); CREATININE 0.6 mg/dL (0.6-1.3); POTASSIUM 3.6 mmol/L (3.5-5.1); TOTAL BILIRUBIN 0.1 mg/dL (0.0-1.0)
[2019-06-04 22:44] LABS: APPEARANCE,URINE CLOUDY (CLEAR)
[2019-06-04 22:45] LABS: RBC,URINE 0-5 /HPF (0-5)
[2019-06-04] MEDS: NACL 0.9% 1,000 ML IV SCH (23:38)
[2019-06-05] MEDS ORDERED: fentaNYL 0.05 MG/ML VIAL ONE (00:43)
[2019-06-05] MEDS: fentaNYL 0.05 MG/ML VIAL IVP PRN ×6 (02:38→17:53)
[2019-06-05] MEDS ORDERED: traMADol 50 MG TAB PO PRN (06:05)
[2019-06-05] MEDS: NITROFURANTOIN 100 MG CAP PO SCH ×2 (08:25→17:13)
[2019-06-05] MEDS ORDERED: traMADol 50 MG TAB PO SCH (09:00)
[2019-06-05] MEDS ORDERED: traMADol 50 MG TAB ONE (12:40)
[2019-06-05] MEDS: oxyCODONE/APAP 5/325 MG 1 TAB TAB PO SCH ×2 (12:49→19:02)
[2019-06-05] MEDS: traMADol 50 MG TAB PO SCH ×2 (17:12→21:12)
[2019-06-05] MEDS ORDERED: GENTAMICIN PER PHARMACY MC PRN (18:10)
[2019-06-05] MEDS ORDERED: cefTRIAXone 2,000 MG in DEXTROSE 5% 100 ML IV SCH (18:10)
[2019-06-05] MEDS ORDERED: cefTRIAXone 2,000 MG in NACL 0.9% 100 ML IV SCH (18:50)
[2019-06-05] MEDS ORDERED: cefTRIAXone 1,000 MG VIAL ONE (18:51)
[2019-06-05] MEDS: cefTRIAXone 2,000 MG in NACL 0.9% 100 ML IV SCH (19:01)
[2019-06-05] MEDS ORDERED: GENTAMICIN 120 MG in NACL 0.9% 100 ML IV SCH ×2 (19:05→20:50)
[2019-06-05] MEDS ORDERED: GENTAMICIN 80 MG/2 ML VIAL ONE (21:12)
[2019-06-05] MEDS: HYDROmorphone PFS 2 MG/ML SYR IVP SCH (21:13)
[2019-06-05] MEDS: metroNIDAZOLE 500 MG TAB PO SCH (21:26)
[2019-06-06] MEDS ORDERED: HYDROmorphone PFS 2 MG/ML SYR IVP SCH
[2019-06-06] MEDS: NACL 0.9% 1,000 ML IV SCH ×3 (00:22→17:20)
[2019-06-06] MEDS: oxyCODONE/APAP 5/325 MG 1 TAB TAB PO SCH ×3 (01:03→13:00)
[2019-06-06] MEDS: HYDROmorphone PFS 2 MG/ML SYR IVP SCH ×4 (03:04→20:05)
--- NOTE | 2019-06-06 07:38 | NUR ---
PATIENT HAS BEEN SCREENED AND CATEGORIZED LOW NUTRITION RISK. PATIENT WILL BE SEEN WITHIN 7 DAYS OF ADMISSION. 06/12/[address]
[2019-06-06] MEDS: metroNIDAZOLE 500 MG TAB PO SCH ×2 (09:03→21:04)
[2019-06-06] MEDS: traMADol 50 MG TAB PO SCH ×2 (09:03→15:05)
[2019-06-06] MEDS: GENTAMICIN 80 MG in DEXTROSE 5% 100 ML IV SCH ×2 (09:05→21:06)
[2019-06-06] MEDS ORDERED: traMADol 50 MG TAB PO SCH (13:00)
[2019-06-06] MEDS ORDERED: HYDROmorphone PFS 2 MG/ML SYR ONE (15:58)
[2019-06-06] MEDS ORDERED: cefTRIAXone 1,000 MG VIAL ONE (18:46)
[2019-06-06] MEDS: cefTRIAXone 2,000 MG in NACL 0.9% 100 ML IV SCH (18:56)
[2019-06-07] MEDS: HYDROmorphone PFS 2 MG/ML SYR IVP SCH ×3 (00:06→12:55)
[2019-06-07] MEDS: NACL 0.9% 1,000 ML IV SCH (08:47)
[2019-06-07] MEDS: GENTAMICIN 80 MG in DEXTROSE 5% 100 ML IV SCH (08:49)
[2019-06-07] MEDS ORDERED: cefTRIAXone 2,000 MG in DEXTROSE 5% 100 ML IV SCH (13:00)
[2019-06-07] MEDS ORDERED: AMPICILLIN 1,000 MG VIAL ONE (13:47)
== END 2019-06-07 14:25 | disposition home or self-care (01) | DRG 833 ==
LOC: MLD 20:33 → OBSVTOIN 06-06 20:31
PROVIDERS: ADMIT Obstetrics & Gynecology; ATTEND Obstetrics & Gynecology
DX: O23.42 Unspecified infection of urinary tract in pregnancy, second trimester (principal); O34.211 Maternal care for low transverse scar from previous cesarean delivery; Z3A.21 21 weeks gestation of pregnancy; G89.29 Other chronic pain; R10.2 Pelvic and perineal pain
CPT/HCPCS: 36415; 76805; 76817; 80053; 81001; 85025; 87086; G0378; J0290; J0696; J1170; J1580; J2405; J3010; J7030; J7060; Q0092

== ENCOUNTER 2019-09-09 14:33 | Inpatient (IN) | payer BC ==
[~2019-09-09] VITALS: Ht 160 cm; Wt 65.3 kg
[~2019-09-09 14:33] MED LIST changes: -DOXY25TA30 PO; -METO10TA98 PO; -PROM25TA27 PO; -PYRI50TA PO
[2019-09-09] MEDS ORDERED: LACTATED RINGERS 500 ML IV ONE (14:35)
[2019-09-09] MEDS ORDERED: LACTATED RINGERS 1,000 ML IV SCH (14:35)
[2019-09-09] MEDS ORDERED: DOL10 PO (14:49)
[2019-09-09 15:33] VITALS: BP 117/73
[2019-09-09 15:39] LABS: APPEARANCE,URINE CLEAR (CLEAR); BILIRUBIN,URINE NEGATIVE (NEGATIVE); BLOOD, URINE NEGATIVE (NEGATIVE); COLOR,URINE YELLOW (YELLOW); LEUKOCYTE ESTERASE ,URINE NEGATIVE (NEGATIVE); NITRITE, URINE NEGATIVE (NEGATIVE); PH,URINE 6.5 (5.0-9.0); UGLUCOSE NEGATIVE (NEGATIVE)
[2019-09-09 15:51] LABS: BASOPHILS % (AUTO) 0.4 % (0.0-2.0); EOSINOPHILS # (AUTO) 0.4 K/uL (0-0.4); EOSINOPHILS % (AUTO) 3.3 % (0.0-4.0); HEMATOCRIT 31.3 % (36-48); HEMOGLOBIN 10.7 g/dL (12.0-16.0); LYMPHOCYTES % (AUTO) 16.8 % (20.5-51.1); MEAN CORPUSCULAR HEMOGLOBIN 30 pg (27-31); MEAN CORPUSCULAR HGB CONC 34 g/dL (33-37); MEAN CORPUSCULAR VOLUME 87.3 fL (80-94); MONOCYTES # (AUTO) 0.7 K/uL (0.8-1.0); MONOCYTES % (AUTO) 5.8 % (1.7-9.3); NEUTROPHILS # (AUTO) 8.8 K/uL (1.8-7.7); NEUTROPHILS % (AUTO) 73.7 % (42.2-75.2); PLATELET COUNT (AUTO) 314 K/uL (140-450); RED BLOOD CELL COUNT(AUTO) 3.58 MIL/uL (4.20-5.40); RED CELL DISTRIBUTION WIDTH 12.4 % (11.6-13.7); WHITE BLOOD COUNT (AUTO) 11.9 K/uL (4.8-10.8)
[2019-09-09] MEDS ORDERED: BETAMETH ACET/BETAMETH NA PH 30 MG/5 ML VIAL IM SCH (16:00)
[2019-09-09 16:11] LABS: ALBUMIN 2.4 g/dL (3.4-5.0); ANION GAP 11.8 (8-16); CARBON DIOXIDE 25.9 mmol/L (21-32); CREATININE 0.7 mg/dL (0.6-1.3); POTASSIUM 3.7 mmol/L (3.5-5.1); TOTAL BILIRUBIN 0.3 mg/dL (0.0-1.0)
[2019-09-09] MEDS ORDERED: oxyCODONE/APAP 5/325 MG 1 TAB TAB PO PRN (17:20)
[2019-09-09] MEDS ORDERED: METHADONE 10 MG TAB PO SCH (21:00)
[2019-09-10] MEDS ORDERED: traMADol 50 MG TAB PO SCH (09:00)
== END 2019-09-09 20:45 | disposition home or self-care (01) | DRG 833 ==
LOC: MFCC 14:33
PROVIDERS: ADMIT Obstetrics & Gynecology; ATTEND Obstetrics & Gynecology
DX: O36.8330 Maternal care for abnormalities of the fetal heart rate or rhythm, third trimester, not applicable or unspecified (principal); Z88.5 Allergy status to narcotic agent; Z3A.34 34 weeks gestation of pregnancy
CPT/HCPCS: 36415; 76819; 80053; 81003; 85025; 86592; 86886; 86900; 86901; 87653-90; J0690; J0702; J7060; Q0092

== ENCOUNTER 2019-09-16 01:35 | Inpatient (IN) | payer BC ==
[~2019-09-16] VITALS: Ht 160 cm; Wt 68.0 kg
[~2019-09-16 01:35] MED LIST changes: +DOL10 PO; -IMI50 PO; -ONDA8TAB PO
[2019-09-16] MEDS ORDERED: diphenhydrAMINE 50 MG/ML VIAL IVP ONE (02:35)
[2019-09-16] MEDS ORDERED: PROMETHAZINE 25 MG/ML VIAL IVP ONE (02:35)
[2019-09-16] MEDS ORDERED: LACTATED RINGERS 1,000 ML IV SCH (02:40)
[2019-09-16] MEDS ORDERED: diphenhydrAMINE 50 MG/ML VIAL ONE (02:58)
[2019-09-16] MEDS ORDERED: PROMETHAZINE 25 MG/ML VIAL ONE (02:59)
[2019-09-16] MEDS ORDERED: HYDROmorphone PFS 2 MG/ML SYR ONE (02:59)
[2019-09-16] MEDS: HYDROmorphone PFS 2 MG/ML SYR IVP PRN ×4 (03:08→15:04)
[2019-09-16 03:35] LABS: APPEARANCE,URINE CLEAR (CLEAR); BARBITURATE, URINE NEGATIVE ng/ml (NEG <=200); BENZODIAZEPINE, URINE NEGATIVE ng/mL (NEG <=200); BILIRUBIN,URINE NEGATIVE (NEGATIVE); BLOOD, URINE TRACE-I (NEGATIVE); CANNABINOID, URINE NEGATIVE ng/mL (NEG <=50); COCAINE, URINE NEGATIVE ng/mL (NEG <=300); COLOR,URINE YELLOW (YELLOW); LEUKOCYTE ESTERASE ,URINE NEGATIVE (NEGATIVE); NITRITE, URINE NEGATIVE (NEGATIVE); OPIATE, URINE NEGATIVE ng/mL (NEG <=2000); PHENCYCLIDINE SCREEN,URINE NEGATIVE ng/mL (NEG <=25); UGLUCOSE NEGATIVE (NEGATIVE)
[2019-09-16 04:02] LABS: RBC,URINE 0-5 /HPF (0-5); WBC,URINE 0-5 /HPF (0-5)
[2019-09-16] MEDS ORDERED: HYDROmorphone 1 MG/ML AMP IVP PRN ×2 (09:00→10:40)
[2019-09-16] MEDS ORDERED: PROMETHAZINE 25 MG/ML VIAL IVP PRN (09:00)
[2019-09-16] MEDS ORDERED: CARBOPROST 250 MCG/ML AMP IM PRN (09:35)
[2019-09-16] MEDS ORDERED: METHYLERGONOVINE 0.2 MG/ML AMP IM PRN (09:35)
[2019-09-16 10:04] LABS: BASOPHILS % (AUTO) 0.2 % (0.0-2.0); EOSINOPHILS # (AUTO) 0.3 K/uL (0-0.4); EOSINOPHILS % (AUTO) 2.9 % (0.0-4.0); HEMATOCRIT 31.7 % (36-48); HEMOGLOBIN 10.7 g/dL (12.0-16.0); LYMPHOCYTES # (AUTO) 1.9 K/uL (2.5-16.5); LYMPHOCYTES % (AUTO) 16.6 % (20.5-51.1); MEAN CORPUSCULAR HEMOGLOBIN 29 pg (27-31); MEAN CORPUSCULAR HGB CONC 34 g/dL (33-37); MEAN CORPUSCULAR VOLUME 86.9 fL (80-94); MONOCYTES # (AUTO) 0.8 K/uL (0.8-1.0); MONOCYTES % (AUTO) 7.3 % (1.7-9.3); NEUTROPHILS # (AUTO) 8.3 K/uL (1.8-7.7); PLATELET COUNT (AUTO) 327 K/uL (140-450); RED BLOOD CELL COUNT(AUTO) 3.65 MIL/uL (4.20-5.40); RED CELL DISTRIBUTION WIDTH 12.5 % (11.6-13.7); WHITE BLOOD COUNT (AUTO) 11.4 K/uL (4.8-10.8)
[2019-09-16 11:43] VITALS: BP 99/65
[2019-09-16 12:44] LABS: ALBUMIN 2.4 g/dL (3.4-5.0); ANION GAP 10.7 (8-16); CARBON DIOXIDE 27.8 mmol/L (21-32); CREATININE 0.7 mg/dL (0.6-1.3); POTASSIUM 4.5 mmol/L (3.5-5.1); TOTAL BILIRUBIN 0.3 mg/dL (0.0-1.0)
[2019-09-16] MEDS ORDERED: fentaNYL 0.05 MG/ML VIAL ONE (14:50)
[2019-09-16] MEDS ORDERED: KETAMINE 500 MG/5 ML VIAL ONE (14:50)
[2019-09-16] MEDS ORDERED: MIDAZOLAM 2 MG/2 ML VIAL ONE ×2 (14:51→17:45)
[2019-09-16] MEDS ORDERED: ONDANSETRON 4 MG/2 ML VIAL IVP PRN ×2 (16:20)
[2019-09-16] MEDS ORDERED: MEPERIDINE 25 MG/ML SYR IVP PRN (16:20)
[2019-09-16] MEDS ORDERED: NALOXONE 0.4 MG/ML VIAL IVP PRN (16:20)
[2019-09-16] MEDS ORDERED: diphenhydrAMINE 50 MG/ML VIAL IVP PRN (16:20)
[2019-09-16] MEDS ORDERED: KETOROLAC 60 MG/2 ML VIAL IM PRN (16:20)
--- NOTE | 2019-09-16 16:21 | NUR ---
PATIENT HAS BEEN SCREENED AND CATEGORIZED LOW NUTRITION RISK. PATIENT WILL BE SEEN WITHIN 7 DAYS OF ADMISSION. 09/22/[address]
[2019-09-16] MEDS ORDERED: ceFAZolin 1,000 MG VIAL ONE (16:51)
[2019-09-16] MEDS ORDERED: CITRIC ACID/SODIUM CITRATE 30 ML UDC PO SCH (17:00)
[2019-09-16] MEDS ORDERED: AZITHROMYCIN 500 MG INJ VIAL IV ONE ×2 (17:40→18:16)
[2019-09-16] MEDS ORDERED: OXYTOCIN 10 UNITS/ML VIAL ONE (17:45)
[2019-09-16] MEDS ORDERED: ESMOLOL 100 MG/10 ML VIAL IV ONE (17:45)
[2019-09-16] MEDS ORDERED: ONDANSETRON 4 MG/2 ML VIAL ONE (17:45)
[2019-09-16] MEDS ORDERED: ePHEDrine 50 MG/ML VIAL ONE (17:45)
[2019-09-16] MEDS ORDERED: oxyCODONE/APAP 5/325 MG 1 TAB TAB PO PRN (22:30)
[2019-09-16] MEDS ORDERED: traMADol 50 MG TAB PO PRN (22:30)
[2019-09-17] MEDS ORDERED: OXYTOCIN 20 UNITS/LR PREMIX 1,000 ML IV ONE (01:10)
[2019-09-17] MEDS: OXYTOCIN 20 UNITS in LACTATED RINGERS 1,000 ML IV SCH ×2 (01:21→09:45)
[2019-09-17] MEDS: HYDROmorphone 1 MG/ML AMP IVP PRN ×5 (04:10→21:43)
[2019-09-17] MEDS ORDERED: traMADol 50 MG TAB PO PRN (07:00)
[2019-09-17] MEDS ORDERED: HYDROmorphone PFS 2 MG/ML SYR ONE ×4 (08:09→18:24)
[2019-09-17] MEDS: METHADONE 10 MG TAB PO SCH ×2 (11:28→20:59)
[2019-09-17] MEDS ORDERED: HYDROmorphone 1 MG/ML AMP IVP PRN (13:15)
[2019-09-17] MEDS: KETOROLAC 30 MG/ML VIAL IVP SCH (17:30)
[2019-09-17] MEDS: SIMETHICONE 80 MG TAB.CHEW PO PRN (18:29)
[2019-09-17] MEDS: oxyCODONE/APAP 5/325 MG 1 TAB TAB PO PRN (20:38)
[2019-09-18] MEDS: KETOROLAC 30 MG/ML VIAL IVP SCH ×4 (00:01→18:00)
[2019-09-18] MEDS: HYDROmorphone 1 MG/ML AMP IVP PRN ×2 (01:06→04:23)
[2019-09-18] MEDS: oxyCODONE/APAP 5/325 MG 1 TAB TAB PO PRN ×4 (02:48→21:12)
[2019-09-18 09:04] LABS: BASOPHILS % (AUTO) 0.1 % (0.0-2.0); EOSINOPHILS # (AUTO) 0.2 K/uL (0-0.4); EOSINOPHILS % (AUTO) 1.4 % (0.0-4.0); HEMATOCRIT 29.1 % (36-48); HEMOGLOBIN 9.8 g/dL (12.0-16.0); LYMPHOCYTES # (AUTO) 1.2 K/uL (2.5-16.5); LYMPHOCYTES % (AUTO) 10.4 % (20.5-51.1); MEAN CORPUSCULAR HEMOGLOBIN 29 pg (27-31); MEAN CORPUSCULAR HGB CONC 34 g/dL (33-37); MEAN CORPUSCULAR VOLUME 87.1 fL (80-94); MONOCYTES # (AUTO) 0.7 K/uL (0.8-1.0); MONOCYTES % (AUTO) 5.7 % (1.7-9.3); NEUTROPHILS # (AUTO) 9.6 K/uL (1.8-7.7); NEUTROPHILS % (AUTO) 82.4 % (42.2-75.2); PLATELET COUNT (AUTO) 331 K/uL (140-450); RED BLOOD CELL COUNT(AUTO) 3.34 MIL/uL (4.20-5.40); RED CELL DISTRIBUTION WIDTH 12.8 % (11.6-13.7); WHITE BLOOD COUNT (AUTO) 11.6 K/uL (4.8-10.8)
[2019-09-18] MEDS: METHADONE 10 MG TAB PO SCH ×2 (09:31→21:12)
[2019-09-18] MEDS: HYDROmorphone PFS 2 MG/ML SYR IVP PRN ×5 (09:54→21:48)
[2019-09-19] MEDS: KETOROLAC 30 MG/ML VIAL IVP SCH (00:10)
[2019-09-19] MEDS: oxyCODONE/APAP 5/325 MG 1 TAB TAB PO PRN ×2 (02:36→14:16)
[2019-09-19] MEDS: HYDROmorphone PFS 2 MG/ML SYR IVP PRN (02:43)
[2019-09-19] MEDS: HYDROmorphone 2 MG TAB PO PRN ×4 (05:47→15:25)
[2019-09-19] MEDS ORDERED: HYDROmorphone PFS 2 MG/ML SYR IM SCH (10:00)
[2019-09-19] MEDS ORDERED: PROMETHAZINE 25 MG/ML VIAL IM PRN (10:00)
[2019-09-19] MEDS: SIMETHICONE 80 MG TAB.CHEW PO PRN (10:09)
[2019-09-19] MEDS: METHADONE 10 MG TAB PO SCH (10:09)
[2019-09-19] MEDS ORDERED: PROMETHAZINE 25 MG/ML VIAL ONE (10:25)
[2019-09-19] MEDS ORDERED: CAMERA MC ONE (17:58)
== END 2019-09-19 18:55 | disposition home or self-care (01) | DRG 787 ==
LOC: MLD 01:35 → OBSVTOIN 09:28 → MFCC 18:50
PROVIDERS: ADMIT Obstetrics & Gynecology; ATTEND Obstetrics & Gynecology
PROC: 10D00Z1 Extraction of Products of Conception, Low, Open Approach (ICD-10-PCS; principal; 2019-09-16 17:00)
DX: O34.211 Maternal care for low transverse scar from previous cesarean delivery (principal); O99.354 Diseases of the nervous system complicating childbirth; O32.1XX0 Maternal care for breech presentation, not applicable or unspecified; G89.29 Other chronic pain; Z37.0 Single live birth; Z3A.35 35 weeks gestation of pregnancy; Z79.891 Long term (current) use of opiate analgesic
CPT/HCPCS: 36415; 80053; 80305; 81001; 85025; 86592; 86886; 86900; 86901; G0378; J0456; J0690; J1170; J1200; J1885; J2175; J2250; J2405; J2550; J2590; J3010; J3490; J7060; J7120

== ENCOUNTER 2020-11-07 21:46 | Emergency (ER) | payer SELFPAY ==
[~2020-11-07] VITALS: Ht 160 cm; Wt 61.2 kg
[~2020-11-07 21:46] MED LIST changes: -DOL10 PO; +METH-1550 PO
[2020-11-07 22:00] VITALS: BP 127/75
--- NOTE | 2020-11-07 22:03 | NUR ---
TO LOBBY A/W BED AMBULATORY
[2020-11-07] MEDS ORDERED: KETOROLAC 30 MG/ML VIAL IM ONE (23:35)
--- NOTE | 2020-11-08 00:24 | NUR ---
PT RETURN FROM XRAY
[2020-11-08] MEDS ORDERED: IBUP-2218 PO (00:31)
--- NOTE | 2020-11-08 01:00 | NUR ---
SLING PLACED TO RT ARM.
== END 2020-11-08 01:10 | disposition home or self-care (01) ==
LOC: MED 21:46
DX: M79.601 Pain in right arm (principal); Z88.5 Allergy status to narcotic agent; X58.XXXA Exposure to other specified factors, initial encounter; Y93.89 Activity, other specified; Y92.89 Other specified places as the place of occurrence of the external cause; Y99.8 Other external cause status
CPT/HCPCS: 73030; 73060; 73080; 73090; 96372; 99284; J1885